=== PATIENT | male | born 1980 | race Caucasian/White ===

== ENCOUNTER → 2017-01-08 | Outpatient (CLI) | payer OTHER ==
--- NOTE | 2017-01-08 08:09 | REP ---
CT Head without contrast HISTORY: Headache COMPARISON: None There is no intraparenchymal hemorrhage, acute infarct, mass or midline shift. The ventricular system is normal in appearance. There is no extra cerebral collection. There is no fracture. The visualized sinuses are clear. IMPRESSION: There is no intracranial lesion. Signed by Espinoza Ritchie MD 01/08/2017 08:00 A
== END ==
LOC: M RAD 07:23
PROVIDERS: ATTEND Physician Assistant
DX: R51 Headache (principal)

== ENCOUNTER 2018-10-31 23:02 | Emergency (ER) | payer BC, OTHER ==
[~2018-10-31] VITALS: Ht 177.8 cm; Wt 84.5 kg
[2018-10-31 23:36] LABS: BASO % 0.4 % (0.0-1.0); EOS # 0.1 10^3/uL (0.0-0.50); EOS % 0.9 % (0.0-3.0); HEMATOCRIT 40.4 % (42.0-52.0); LYMPH # 2.1 10^3/uL (1.5-4.5); LYMPH % 19.7 % (24.0-44.0); MEAN CORPUSCULAR HEMOGLOBIN 31.7 pg (27.0-33.0); MEAN CORPUSCULAR HGB CONC 34.7 g/dl (32.0-36.5); MEAN CORPUSCULAR VOLUME 91.6 fl (80.0-96.0); MONO # 0.9 10^3/uL (0.0-0.8); MONO % 8.4 % (0.0-5.0); NEUTROPHILS # 7.5 10^3/uL (1.8-7.7); NEUTROPHILS % 70.1 % (36.0-66.0); PLATELET COUNT, AUTOMATED 324 10^3/uL (150-450); RED BLOOD COUNT 4.41 10^6/uL (4.30-6.10); WHITE BLOOD COUNT 10.7 10^3/uL (4.0-10.0)
--- NOTE | 2018-11-01 00:11 | REPVR ---
EXAM: CT Head Without Contrast EXAM DATE/TIME: 10/31/2018 11:31 PM CLINICAL HISTORY: 38 years old, male; Signs and symptoms; Syncope and collapse TECHNIQUE: Imaging protocol: Axial computed tomography images of the head/brain without contrast. Radiation optimization: All CT scans at this facility use at least one of these dose optimization techniques: automated exposure control; mA and/or kV adjustment per patient size (includes targeted exams where dose is matched to clinical indication); or iterative reconstruction. COMPARISON: CT Head without contrast 01/08/2017 7:34 AM FINDINGS: Brain: No CT evidence of acute intracranial hemorrhage or acute territorial infarction. No significant mass effect or midline shift. Basal cisterns patent. Ventricles: Normal in size and configuration. Bones/joints: No acute osseous abnormality. Sinuses: Grossly unremarkable. Mastoid air cells: Grossly unremarkable. Soft tissues: Grossly unremarkable. IMPRESSION: No CT evidence of acute intracranial pathology. Electronically signed by: Terrell Saeed On 11/01/2018 00:11:34 AM
[2018-11-01 00:13] LABS: BLOOD UREA NITROGEN 16 MG/DL (7-18); CALCIUM LEVEL 8.8 MG/DL (8.5-10.1); CARBON DIOXIDE LEVEL 27 MEQ/L (21-32); CHLORIDE LEVEL 107 MEQ/L (98-107); CPK CREATINE PHOSPHOKINASE 247 U/L (39-308); CREATININE FOR GFR 0.93 MG/DL (0.70-1.30); ETHYL ALCOHOL (ETHANOL) 0.024 % (0.000-0.010); GLOMERULAR FILTRATION RATE > 60.0 (>60); GLUCOSE, FASTING 124 MG/DL (70-100); MB/CK RELATIVE INDEX 0.69 (< OR =4); POTASSIUM SERUM 3.8 MEQ/L (3.5-5.1); SODIUM LEVEL 141 MEQ/L (136-145); TROPONIN I < 0.02 NG/ML (< 0.10)
[2018-11-01 03:32] LABS: CPK CREATINE PHOSPHOKINASE 230 U/L (39-308); MB/CK RELATIVE INDEX 0.74 (< OR =4); TROPONIN I < 0.02 NG/ML (< 0.10)
[2018-11-01 03:40] VITALS: BP 121/74
--- NOTE | 2018-11-01 09:19 | REP ---
Clinical: Syncope/near syncope . Comparison: None . Findings: The mediastinum and cardiac silhouette are stable and within normal limits for portable technique. The lung wilkins are clear without acute consolidation, effusion, or pneumothorax. Skeletal structures are intact. Impression: No acute cardiopulmonary process appreciated. Electronically Signed by Kevan Garcia MD 11/01/2018 09:09 A
--- NOTE | 2018-11-01 11:15 | ECGEPIP ---
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
--- NOTE | 2018-11-01 11:19 | ECGEPIP ---
Stationary ECG Study - ED Test Date: 2018-11-01 Pat Name: GABRIELE MONTANA Department: Room: - Gender: M Front Maker: AF : 1980 Requested By: Johan Yan Order Number: [id number] Reading MD: Jose J Dennison Measurements Intervals [place] Rate: 57 P: 17 [place]: 164 QRS: 50 QRSD: 114 T: 42 QT: 436 QTc: 425 Interpretive Statements SINUS BRADYCARDIA POSSIBLE RIGHT VENTRICULAR CONDUCTION DELAY PROBABLE INFERIOR MYOCARDIAL INFARCTION, PROBABLY OLD CW 10/31/18 NO CHANGE Electronically Signed On 11-01-2018 11:18:46 EDT by Jose J Dennison
== END 2018-11-01 03:55 | disposition home or self-care (01) ==
LOC: M ED 23:02
DX: R39.198 Other difficulties with micturition (principal); R00.1 Bradycardia, unspecified; G44.001 Cluster headache syndrome, unspecified, intractable; M54.9 Dorsalgia, unspecified
CPT/HCPCS: 70450; 71045; 80048; 82550; 82553; 84443; 84484; 85025; 93005; 93041; 94760; 99285; G0480